=== PATIENT | female | born 1955 | race Caucasian/White ===

== ENCOUNTER 2021-03-13 13:21 | Emergency (ER) | payer BC ==
[2021-03-13] MEDS ORDERED: Zofran 4 MG/2 ML VIAL IV ONE (13:55)
[2021-03-13] MEDS ORDERED: Hydromorphone 1 mg/ml Injection IV ONE ×2 (13:55→19:05)
[2021-03-13] MEDS ORDERED: TYLENOL 325 MG PO ONE (13:55)
[2021-03-13] MEDS ORDERED: Sodium Chloride 0.9% 1000 ML 1,000 ML IV SCH (14:00)
[2021-03-13] MEDS ORDERED: Hydromorphone 1 mg/ml Injection ONE ×2 (14:07→19:07)
[2021-03-13] MEDS ORDERED: TYLENOL 325 MG ONE (14:07)
[2021-03-13] MEDS ORDERED: Zofran 4 MG/2 ML VIAL ONE (14:07)
[2021-03-13] MEDS ORDERED: Sodium Chloride 0.9% 1000 ML 1,000 ML ONE (14:08)
[2021-03-13 14:14] LABS: Hematocrit 40.1 % (35-47); Hemoglobin 13.6 gm/dl (12.0-16.0); Mean Cell Volume 87.9 fl (78-100); Mean Corpuscular Hemoglobin 29.8 pg (26-32); Mean Corpuscular Hgb Concent. 33.9 g/dl (32-36); Mean Platelet Volume 9.3 fl (7.5-11.0); Platelet Count 174 K/mm3 (150-450); Red Blood Count 4.56 M/mm3 (4.1-5.4); Red Cell Distribution Width 13.6 % (11.5-14.0); White Blood Count 15.3 K/mm3 (4.0-10.5)
[2021-03-13 14:32] LABS: Appearance SLIGHTLY CLOUDY (CLEAR); Bacteria RARE /HPF (NEGATIVE); Bilirubin NEGATIVE (NEGATIVE); Blood NEGATIVE Ery/ul (0-5); Epithelial Cells RARE /HPF (FEW); Glucose NEGATIVE (NEGATIVE); Ketones NEGATIVE (NEGATIVE); Leukocyte Esterase NEGATIVE (NEGATIVE); Mucus SLIGHT /HPF (NEGATIVE); Nitrite POSITIVE (NEGATIVE); Protein,Urine Dip 30 (Negative); Specific Gravity 1.019 (1.005-1.025); Urobilinogen NEGATIVE mg/dL (0-1)
[2021-03-13 14:34] LABS: ALBUMIN 4.3 g/dL (3.5-5.0); ALKALINE PHOSPHATASE 62 U/L (38-126); ANION GAP 16.3 MEQ/L (5-15); BLOOD UREA NITROGEN 13 mg/dL (7-17); CHLORIDE 94 mmol/L (98-107); Calcium 9.9 mg/dL (8.4-10.2); Carbon Dioxide 25 mmol/L (22-30); Creatinine 1 0.61 mg/dL (0.52-1.04); EST GLOMERULAR FILTRATION RATE > 60.0 ML/MIN; Glucose 135 mg/dL (74-106); Potassium 3.5 mmol/L (3.5-5.1); SGOT/AST 21 U/L (14-36); SGPT/ALT 20 U/L (0-35); SODIUM 132 mmol/L (137-145); Total Protein 7.3 g/dL (6.3-8.2)
[2021-03-13] MEDS ORDERED: DUONEB 0.5-3 MG/3 ml Neb IH ONE ×2 (15:14→15:27)
[2021-03-13] MEDS ORDERED: ROCEPHIN 2 Gm-D5w 50ML BAG** 2 G/50 ML IVPB IV STA (15:16)
[2021-03-13] MEDS ORDERED: Zithromax 500 MG/ 250 ML NaCl Premix 500 MG/250 ML IVPB IV STA (15:16)
[2021-03-13] MEDS ORDERED: TORAdol 30 mg Injection ONE (15:22)
[2021-03-13] MEDS ORDERED: ROCEPHIN 2 Gm-D5w 50ML BAG** 2 G/50 ML IVPB IV ONE (15:23)
[2021-03-13] MEDS ORDERED: Zithromax 500 MG/ 250 ML NaCl Premix 500 MG/250 ML IVPB IV ONE (15:23)
[2021-03-13 15:32] LABS: BAND 4 % (0.0-2.0); Lymphocytes 6 % (24-44); Monocyte 5 % (0.0-12.0); Neutrophils 85 % (36.0-66.0); Total Cells Counted 100
[2021-03-13 15:33] LABS: Platelet Estimate NORMAL (NORMAL)
[2021-03-13] MEDS ORDERED: VANCOMYCIN 2 GRAM/400 ML BAG 2 GM/400 ML PIGGYBACK IV ONE ×2 (18:31→18:34)
--- NOTE | 2021-03-13 18:36 | XRAY ---
Indication: Fever. Weakness. Comparison: July 16, 2015. Portable less inflated accentuating cardiopulmonary structures. No focal infiltrate, consolidation, or large effusion. Bony thorax intact again with mild degenerative changes. Impression: Nonacute underinflated chest.
--- NOTE | 2021-03-13 18:40 | XRAY ---
Indication: Pain. Septic joint. Multiple contiguous axial images obtained through the right shoulder without contrast. Sagittal and coronal reformatted images obtained. Comparison: None Right shoulder articulation appears anatomic with small nonspecific effusion. Mild/moderate glenohumeral and acromioclavicular degenerative arthropathy. No acute fracture, suspicious bony lesions, or osseous destructive process. No pathologic axillary lymphadenopathy. Visualized noncontrasted soft tissues are unremarkable. Visualized right lung demonstrates pulmonary emphysema with scattered fibrosis/scarring. Impression: Glenohumeral/AC degenerative arthropathy and small nonspecific effusion. Incidental pulmonary emphysema. Comment: Preliminary interpretation made by [facility]. No critical discrepancy.
--- NOTE | 2021-03-13 18:42 | XRAY ---
Indication: Pain. Limited range of motion. Comparison: March 10, 2016. 3 portable views right shoulder again demonstrates mild/moderate glenohumeral and acromioclavicular degenerative arthropathy. No new/acute bony, articular, or soft tissue abnormalities.
--- NOTE | 2021-03-13 18:57 | ERPHSYRPT ---
- History of Present Illness Time Seen by Provider: 03/13/21 13:25 Source: patient Exam Limitations: no limitations Patient Subjective Stated Complaint: Arm pain Triage Nursing Assessment: Patient brought into ED via w/c and transferred to bed with assist of 1. Patient A+O x3. Patient's skin flushed, warm and dry. Patient complains of right shoulder/arm and right leg pain that started last night. Patient unable to ambulate per self. Patient denies injury to areas. Patient complains of constant aching pain 10/10. Physician History: 65 years old female with history of heavy tobacco abuse, hypertension presented in the ER with chief complaint of right shoulder and right lower extremity pain with movements since last night. Patient reports pain in the right lower extremity is better but she is unable to move her right shoulder but 10/10 intensity sharp shooting pain. Partial relief with being still. Denies any fall or trauma. Does have problem with left shoulder in the past. Does have chronic shortness of breath which is not any worse than usual. Patient also reports having low-grade fever with a T-max of 101 on presentation in the ER. Has chronic smoker cough which is not any worse than usual. Also reports urinary urgency. Occurred: yesterday Method of Injury: unknown Quality: sharpness Severity of Pain-Max: severe Severity of Pain-Current: severe Extremities Pain Location: shoulder: right Modifying Factors: Improves With: immobilization, rest. Worsens With: movement Associated Symptoms: short of breath Allergies/Adverse Reactions: No Known Drug Allergies Allergy (Unverified 03/13/21 13:41) Home Medications: Metoprolol Succinate 50 mg [Toprol Xl 50 MG] 1 tab PO DAILY 03/13/21 [History] Triamterene/Hydrochlorothiazid [Triamterene-Hctz 37.5-25 mg Tb] 1 tab PO DAILY 03/13/21 [History] Hx Influenza Vaccination/Date Given: No Hx Pneumococcal Vaccination/Date Given: No Immunizations Up to Date: Yes Travel Risk - International Travel Have you traveled outside of the country in past 3 weeks: No - Coronavirus Screening Are you exhibiting any of the following symptoms?: No Close contact with a COVID-19 positive Pt in past 14-21 Days: No - Vaccine Status Have you recieved a Covid-19 vaccination: Yes [employer]: [employer] - Vaccination Dates Date of 2cond Vaccination (if applicable): 09/30/2020 - Review of Systems Constitutional: Fever, Chills, Fatigue, Weakness Eyes: No Symptoms Ears, Nose, & Throat: No Symptoms Respiratory: Cough, Dyspnea on Exertion (ARCE) Cardiac: No Symptoms Abdominal/Gastrointestinal: No Symptoms Genitourinary Symptoms: Urgency Musculoskeletal: Arthralgias, Joint Pain, Joint Swelling Skin: No Symptoms Neurological: No Symptoms Psychological: No Symptoms Endocrine: No Symptoms Hematologic/Lymphatic: No Symptoms Immunological/Allergic: No Symptoms - Past Medical History Neurological History: No Pertinent History ENT History: No Pertinent History Cardiac History: Hypertension Respiratory History: No Pertinent History Endocrine Medical History: No Pertinent History Musculoskeletal History: No Pertinent History GI Medical History: No Pertinent History History: No Pertinent History Psycho-Social History: No Pertinent History Female Reproductive Disorders: No Pertinent History - Past Surgical History Past Surgical History: Yes Neuro Surgical History: No Pertinent History Cardiac: No Pertinent History Respiratory: No Pertinent History Gastrointestinal: Cholecystectomy Genitourinary: No Pertinent History Musculoskeletal: No Pertinent History Female Surgical History: Hysterectomy - Social History Smoking Status: Current every day smoker How long have you smoked: years Exposure to second hand smoke: Yes Drug Use: none Patient Lives Alone: Yes - Female History Hx Last Menstrual Period: hysterectomy - Nursing Vital Signs Nursing Vital Signs: Initial Vital Signs Pulse Rate 98 H 03/13/21 13:33 Blood Pressure 170/105 03/13/21 13:33 O2 Sat by Pulse Oximetry 94 L 03/13/21 13:33 Pain Scale Pain Intensity 9 - Physical Exam General Appearance: mild distress, alert Eyes, Ears, Nose, Throat Exam: normal ENT inspection, pharyngeal erythema Neck Exam: normal inspection, non-tender, supple, full range of motion, No limited range of motion, No tenderness lateral Cardiovascular/Respiratory Exam: chest non-tender, normal breath sounds, regular rate/rhythm Abdominal Exam: non-tender, soft Back Exam: normal inspection, normal range of motion, No CVA tenderness Shoulder Exam: normal inspection, limited ROM (Severely limited range of motion right shoulder with soft tissue tenderness.) Elbow/Forearm Exam: normal inspection, non-tender, no evidence of injury, normal ROM Wrist Exam: normal inspection, non-tender Hand Exam: normal inspection, non-tender, no evidence of injury, normal ROM Neuro/Tendon Exam: normal sensation, normal motor functions Mental Status Exam: alert, oriented x 3, cooperative Skin Exam: normal color SpO2 Interpretation: normal SpO2: 97 O2 Delivery: Room Air Ordered Tests: Active Orders 24 hr Category Date Time Status IV Insertion STAT Care 03/13/21 13:55 Active NPO (ED) STAT Care 03/13/21 13:55 Active CHEST 1 VIEW (PORTABLE) Stat Exams 03/13/21 13:56 Completed SHOULDER Stat Exams 03/13/21 Completed UPPER EXTREMITY W/O CONTRAST [CT] Stat Exams 03/13/21 15:15 Completed BLOOD CULTURE Stat Lab 03/13/21 14:10 Received CBC W DIFF Stat Lab 03/13/21 14:00 Completed CMP Stat Lab 03/13/21 14:00 Completed CULTURE,URINE Stat Lab 03/13/21 14:05 Received Lactic Acid Stat Lab 03/13/21 14:00 Completed Lactic Acid Stat Lab 03/13/21 16:08 Completed Manual Differential NC Stat Lab 03/13/21 14:00 Completed TROPONIN Q3H Lab 03/13/21 14:00 Completed TROPONIN Q3H Lab 03/13/21 16:58 Completed TROPONIN Q3H Lab 03/13/21 20:00 Ordered TROPONIN Q3H Lab 03/13/21 23:00 Ordered TROPONIN Q3H Lab 03/14/21 02:00 Ordered UA W/RFX UR CULTURE Stat Lab 03/13/21 14:05 Completed Respiratory Therapy Assessment ONCE RT 03/13/21 17:18 Active Medication Summary Generic Name Dose Route Start Last Admin Trade Name Freq PRN Reason Stop Dose Admin Sodium Chloride 1,000 mls @ 100 mls/hr 03/13/21 14:00 03/13/21 14:15 Sodium Chloride 0.9% 1000 Ml IV 04/12/21 13:59 100 mls/hr .Q10H ALEXA Administration Vancomycin HCl 2 gm in 400 mls @ 133 mls/hr 03/13/21 18:31 03/13/21 18:35 Vancomycin 2 Gram/400 Ml Bag IV 03/13/21 21:31 133 mg/hr ONCE ONE 26.6 mls/hr Administration Discontinued Medications Generic Name Dose Route Start Last Admin Trade Name Freq PRN Reason Stop Dose Admin Acetaminophen 975 mg 03/13/21 13:55 03/13/21 14:15 Acetaminophen 325 Mg Tablet PO 03/13/21 13:56 975 mg STAT ONE Administration Acetaminophen Confirm 03/13/21 14:07 Acetaminophen 325 Mg Tablet Administered 03/13/21 14:08 Dose 975 mg .ROUTE .STK-MED ONE Albuterol/Ipratropium 3 ml 03/13/21 15:14 03/13/21 15:30 Ipratropium/Albuterol Sulfate 3 Ml Ampul.Neb IH 03/13/21 15:15 3 ml STAT ONE Administration Albuterol/Ipratropium Confirm 03/13/21 15:27 Ipratropium/Albuterol Sulfate 3 Ml Ampul.Neb Administered 03/13/21 15:28 Dose 3 ml IH .STK-MED ONE Hydromorphone HCl 0.5 mg 03/13/21 13:55 03/13/21 14:14 Hydromorphone 1 Mg/1ml Inj 1 Mg/Ml Syringe IV 03/13/21 13:56 0.5 mg STAT ONE Administration Hydromorphone HCl Confirm 03/13/21 14:07 Hydromorphone 1 Mg/1ml Inj 1 Mg/Ml Syringe Administered 03/13/21 14:08 Dose 1 mg .ROUTE .STK-MED ONE Ceftriaxone Sodium/Dextrose 2 g in 50 mls @ 100 mls/hr 03/13/21 15:16 03/13/21 16:02 Rocephin 2 Gm-D5w 50ml Bag IV 03/13/21 15:45 Infused STAT STA Infusion Azithromycin 500 mg in 250 mls @ 250 mls/hr 03/13/21 15:16 03/13/21 16:55 Zithromax 500 Mg/ 250 Ml Nacl Premix IV 03/13/21 16:15 Infused STAT STA Infusion Azithromycin Confirm 03/13/21 15:23 Zithromax 500 Mg/ 250 Ml Nacl Premix Administered 03/13/21 15:24 Dose 500 mg in 250 mls @ ud IV .STK-MED ONE Ceftriaxone Sodium/Dextrose Confirm 03/13/21 15:23 Rocephin 2 Gm-D5w 50ml Bag Administered 03/13/21 15:24 Dose 2 g in 50 mls @ ud IV .STK-MED ONE Vancomycin HCl Confirm 03/13/21 18:34 Vancomycin 2 Gram/400 Ml Bag Administered 03/13/21 18:35 Dose 2 gm in 400 mls @ ud IV .STK-MED ONE Ketorolac Tromethamine Confirm 03/13/21 15:22 Ketorolac Tromethamine 30 Mg/Ml Inj Administered 03/13/21 15:23 Dose 30 mg .ROUTE .STK-MED ONE Ondansetron HCl 4 mg 03/13/21 13:55 03/13/21 14:14 Ondansetron Hcl 4 Mg/2 Ml Vial IV 03/13/21 13:56 4 mg STAT ONE Administration Ondansetron HCl Confirm 03/13/21 14:07 Ondansetron Hcl 4 Mg/2 Ml Vial Administered 03/13/21 14:08 Dose 4 mg .ROUTE .STK-MED ONE Lab/Rad Data: Laboratory Result Diagrams 03/13/21 14:00 03/13/21 14:00 Laboratory Results 03/13/21 03/13/21 03/13/21 Range/Units 16:58 16:08 14:05 WBC (4.0-10.5) K/mm3 RBC (4.1-5.4) M/mm3 Hgb (12.0-16.0) gm/dl Hct (35-47) % MCV (78-100) fl MCH (26-32) pg MCHC (32-36) g/dl RDW (11.5-14.0) % Plt Count (150-450) K/mm3 MPV (7.5-11.0) fl Segmented Neutrophils (36.0-66.0) % Band Neutrophils (0.0-2.0) % Lymphocytes (Manual) (24-44) % Monocytes (Manual) (0.0-12.0) % Platelet Estimate (NORMAL) RBC Morphology Sodium (137-145) mmol/L Potassium (3.5-5.1) mmol/L Chloride (98-107) mmol/L Carbon Dioxide (22-30) mmol/L Anion Gap (5-15) MEQ/L BUN (7-17) mg/dL Creatinine (0.52-1.04) mg/dL Estimated GFR ML/MIN Glucose (74-106) mg/dL Lactic Acid 2.0 (0.4-2.0) Calcium (8.4-10.2) mg/dL Total Bilirubin (0.2-1.3) mg/dL AST (14-36) U/L ALT (0-35) U/L Alkaline Phosphatase (38-126) U/L Troponin I < 0.012 (0.000-0.034) ng/mL Serum Total Protein (6.3-8.2) g/dL Albumin (3.5-5.0) g/dL Urine Color FRANCISCA (YELLOW) Urine Appearance SLIGHTLY CLOUDY (CLEAR) Urine pH 6.0 (5-6) Ur Specific [place] 1.019 (1.005-1.025) Urine Protein 30 (Negative) Urine Ketones NEGATIVE (NEGATIVE) Urine Blood NEGATIVE (0-5) Marc/ul Urine Nitrite POSITIVE (NEGATIVE) Urine Bilirubin NEGATIVE (NEGATIVE) Urine Urobilinogen NEGATIVE (0-1) mg/dL Ur Leukocyte Esterase NEGATIVE (NEGATIVE) Urine WBC (Auto) 6-10 (0-5) /HPF Urine RBC (Auto) 6-10 (0-2) /HPF U Epithel Cells (Auto) RARE (FEW) /HPF Urine Bacteria (Auto) RARE (NEGATIVE) /HPF Urine Mucus (Auto) SLIGHT (NEGATIVE) /HPF Urine Culture Reflexed YES (NO) Urine Glucose NEGATIVE (NEGATIVE) mg/dL 03/13/21 03/13/21 03/13/21 Range/Units 14:00 14:00 14:00 WBC (4.0-10.5) K/mm3 RBC (4.1-5.4) M/mm3 Hgb (12.0-16.0) gm/dl Hct (35-47) % MCV (78-100) fl MCH (26-32) pg MCHC (32-36) g/dl RDW (11.5-14.0) % Plt Count (150-450) K/mm3 MPV (7.5-11.0) fl Segmented Neutrophils (36.0-66.0) % Band Neutrophils (0.0-2.0) % Lymphocytes (Manual) (24-44) % Monocytes (Manual) (0.0-12.0) % Platelet Estimate (NORMAL) RBC Morphology Sodium 132 L (137-145) mmol/L Potassium 3.5 (3.5-5.1) mmol/L Chloride 94 L (98-107) mmol/L Carbon Dioxide 25 (22-30) mmol/L Anion Gap 16.3 H (5-15) MEQ/L BUN 13 (7-17) mg/dL Creatinine 0.61 (0.52-1.04) mg/dL Estimated GFR > 60.0 ML/MIN Glucose 135 H (74-106) mg/dL Lactic Acid 2.2 H (0.4-2.0) Calcium 9.9 (8.4-10.2) mg/dL Total Bilirubin 1.20 (0.2-1.3) mg/dL AST 21 (14-36) U/L ALT 20 (0-35) U/L Alkaline Phosphatase 62 (38-126) U/L Troponin I < 0.012 (0.000-0.034) ng/mL Serum Total Protein 7.3 (6.3-8.2) g/dL Albumin 4.3 (3.5-5.0) g/dL Urine Color (YELLOW) Urine Appearance (CLEAR) Urine pH (5-6) Ur Specific [place] (1.005-1.025) Urine Protein (Negative) Urine Ketones (NEGATIVE) Urine Blood (0-5) Marc/ul Urine Nitrite (NEGATIVE) Urine Bilirubin (NEGATIVE) Urine Urobilinogen (0-1) mg/dL Ur Leukocyte Esterase (NEGATIVE) Urine WBC (Auto) (0-5) /HPF Urine RBC (Auto) (0-2) /HPF U Epithel Cells (Auto) (FEW) /HPF Urine Bacteria (Auto) (NEGATIVE) /HPF Urine Mucus (Auto) (NEGATIVE) /HPF Urine Culture Reflexed (NO) Urine Glucose (NEGATIVE) mg/dL 03/13/21 Range/Units 14:00 WBC 15.3 H (4.0-10.5) K/mm3 RBC 4.56 (4.1-5.4) M/mm3 Hgb 13.6 (12.0-16.0) gm/dl Hct 40.1 (35-47) % MCV 87.9 (78-100) fl MCH 29.8 (26-32) pg MCHC 33.9 (32-36) g/dl RDW 13.6 (11.5-14.0) % Plt Count 174 (150-450) K/mm3 MPV 9.3 (7.5-11.0) fl Segmented Neutrophils 85 H (36.0-66.0) % Band Neutrophils 4 H (0.0-2.0) % Lymphocytes (Manual) 6 L (24-44) % Monocytes (Manual) 5 (0.0-12.0) % Platelet Estimate NORMAL (NORMAL) RBC Morphology NORMAL Sodium (137-145) mmol/L Potassium (3.5-5.1) mmol/L Chloride (98-107) mmol/L Carbon Dioxide (22-30) mmol/L Anion Gap (5-15) MEQ/L BUN (7-17) mg/dL Creatinine (0.52-1.04) mg/dL Estimated GFR ML/MIN Glucose (74-106) mg/dL Lactic Acid (0.4-2.0) Calcium (8.4-10.2) mg/dL Total Bilirubin (0.2-1.3) mg/dL AST (14-36) U/L ALT (0-35) U/L Alkaline Phosphatase (38-126) U/L Troponin I (0.000-0.034) ng/mL Serum Total Protein (6.3-8.2) g/dL Albumin (3.5-5.0) g/dL Urine Color (YELLOW) Urine Appearance (CLEAR) Urine pH (5-6) Ur Specific [place] (1.005-1.025) Urine Protein (Negative) Urine Ketones (NEGATIVE) Urine Blood (0-5) Amrc/ul Urine Nitrite (NEGATIVE) Urine Bilirubin (NEGATIVE) Urine Urobilinogen (0-1) mg/dL Ur Leukocyte Esterase (NEGATIVE) Urine WBC (Auto) (0-5) /HPF Urine RBC (Auto) (0-2) /HPF U Epithel Cells (Auto) (FEW) /HPF Urine Bacteria (Auto) (NEGATIVE) /HPF Urine Mucus (Auto) (NEGATIVE) /HPF Urine Culture Reflexed (NO) Urine Glucose (NEGATIVE) mg/dL - Progress Progress: improved, pain not gone completely Progress Note: 03/13/21 18:56 65 years old is evaluated for right shoulder pain with fever and some urinary symptoms. She is given symptomatic treatment for pain. Chest x-ray showed bilateral airspace disease and does have UTI, given a dose of Rocephin and Zithromax. X-ray right shoulder negative for any acute finding but have severe limited range of motion and soft tissue tenderness. Has a white count of 15, la ctate of 2.2, have obtained right shoulder CT which showed mild glenohumeral effusion which could be septic versus inflammatory in some adjacent soft tissue edema. With her pain sudden onset, highly suspicious for septic joint, given a dose of vancomycin as well. Discussed with Dr. Stroud, reviewed history work- up, recommended transfer to facility with orthopedic surgery services. Discussed with Dr. Zhang, agreed with transfer. Plan discussed with patient and family who understand and agree with it. Discussed with .: Vince, Other (Dr. Zhang [facility]) Counseled pt/family regarding: lab results, diagnosis, need for follow-up, rad results - Departure Departure Disposition: Home Clinical Impression: Acute UTI, COPD with acute bronchitis Septic joint of right shoulder region Qualifiers: Septic arthritis organism: due to unspecified organism Qualified Code(s): M00.9 - Pyogenic arthritis, unspecified Condition: Stable Critical Care Time: No Referrals: RENATA GREER [Primary Care Provider] - Follow up/PCP as directed Instructions: Chronic Obstructive Pulmonary Disease
== END 2021-03-13 19:55 | disposition short-term general hospital (02) ==
LOC: ED 13:21
DX: N39.0 Urinary tract infection, site not specified (principal); J44.0 Chronic obstructive pulmonary disease with (acute) lower respiratory infection
CPT/HCPCS: 36000; 36415; 71045; 73030; 73200; 80053; 81001; 83605; 84484; 85025; 87040; 87077; 87086; 87186; 94640; 96365; 96367; 96374; 96375; 96376; 99285; J0456; J0696; J1170; J1885; J2405; A9270-GY; J3370